=== PATIENT | female | born 1940 ===

== ENCOUNTER 2022-11-18 20:19 | Inpatient (IN) | payer MEDICARE, OTHER ==
[~2022-11-18] VITALS: Ht 157.5 cm; Wt 59.7 kg
[2022-11-18 21:41] LABS: GLUCOMETER DEV NAME(LOC) ER.6; GLUCOSE,POINT OF CARE 157 MG/DL (70-110)
[2022-11-18 22:43] LABS: BASOPHILS % (AUTO) 0.4 % (0.0-2.0); EOSINOPHILS % (AUTO) 2.9 % (1.0-6.0); HEMATOCRIT 36.2 % (36-46); HEMOGLOBIN 11.8 g/dL (12.0-16.0); LYMPHOCYTES # (AUTO) 2.6 K/uL (1.0-4.8); LYMPHOCYTES % (AUTO) 39.9 % (22.0-44.0); MEAN CORPUSCULAR HGB CONC 32.7 G/dL (31.0-37.0); MEAN CORPUSCULAR VOLUME 95 fL (80-100); MONOCYTES # (AUTO) 0.7 K/uL (0.1-1.0); MONOCYTES % (AUTO) 11.2 % (2.0-9.0); NEUTROPHILS % (AUTO) 45.6 % (40.0-70.0); PLATELET COUNT (AUTO) 205 K/uL (150-450); RED BLOOD CELL COUNT(AUTO) 3.81 MIL/uL (4.00-5.20); RED CELL DISTRIBUTION WIDTH 12.8 % (11.5-14.5)
[2022-11-18 22:53] LABS: CALCIUM, TOTAL 9.4 mg/dL (8.8-10.5); CREATININE 1.09 mg/dL (0.60-1.30); POTASSIUM 3.9 mmol/L (3.5-5.1)
[2022-11-18 22:56] LABS: PROTHROMBIN TIME 10.1 SEC (9.4-11.6)
[2022-11-18 23:06] LABS: ALBUMIN 3.9 g/dL (3.4-5.0); BILIRUBIN,TOTAL 0.4 mg/dL (0.1-1.0)
[2022-11-18 23:06] LABS: APPEARANCE,URINE HAZY (CLEAR); BILIRUBIN,URINE NEGATIVE (NEGATIVE); GLUCOSE, URINE (UA) 70-100 mg/dL (NEGATIVE); KETONES,URINE NEGATIVE (NEGATIVE); LEUKOCYTE ESTERASE ,URINE NEGATIVE (NEGATIVE); NITRATE,URINE POSITIVE (NEGATIVE); OCCULT BLOOD,URINE NEGATIVE (NEGATIVE); PROTEIN,URINE NEGATIVE (NEGATIVE); UROBILINOGEN,URINE <=1.0 mg/dL (<=1.0)
[2022-11-18 23:19] LABS: RBC,URINE None Seen /HPF (0-2)
[2022-11-18 23:20] LABS: BACTERIA,URINE Moderate /HPF (None Seen); SQUAMOUS EPITHELIAL CELL,UR None Seen /LPF (None Seen); WBC,URINE 0-2 /HPF (0-5)
[2022-11-19] MEDS ORDERED: CefTRIAXone 1 GM/DEXTROSE 50 ML IV ONE
[2022-11-19] MEDS ORDERED: 0.9% SODIUM CHLORIDE 10 ML SYRINGE IVP PRN (01:30)
[2022-11-19] MEDS ORDERED: ONDANSETRON HCL 4 MG/2 ML VIAL IVP PRN (01:30)
[2022-11-19] MEDS ORDERED: SENN-376 PO (01:39)
[2022-11-19] MEDS ORDERED: SIMV-259 PO (01:39)
[2022-11-19] MEDS ORDERED: BENZ1LOZ77 PO (01:39)
[2022-11-19] MEDS ORDERED: DIPY75TA PO (01:39)
[2022-11-19] MEDS ORDERED: NAPR-1197 PO (01:39)
[2022-11-19] MEDS ORDERED: FOSI20TA98 PO (01:39)
[2022-11-19] MEDS ORDERED: MELA5TAB40 PO (01:39)
[2022-11-19] MEDS ORDERED: ALEN70TA65 PO (01:39)
[2022-11-19] MEDS ORDERED: DOCU-385 PO (01:39)
[2022-11-19] MEDS ORDERED: CARV3 PO (01:39)
[2022-11-19] MEDS ORDERED: CLOP75TA60 PO (01:39)
[2022-11-19] MEDS ORDERED: CA/D1TAB7 PO (01:39)
[2022-11-19] MEDS ORDERED: NIFE-46 PO (01:39)
[2022-11-19] MEDS ORDERED: DICL100G51 TP (01:39)
[2022-11-19] MEDS ORDERED: AMIT25TA10 PO (01:39)
[2022-11-19] MEDS ORDERED: TRAM-559 PO (01:39)
[2022-11-19] MEDS ORDERED: DEXT15DR29 OU (01:39)
[2022-11-19 13:46] LABS: GLUCOMETER DEV NAME(LOC) ER.6; GLUCOSE,POINT OF CARE 171 MG/DL (70-110)
[2022-11-19 15:18] VITALS: BP 155/91
[2022-11-19] MEDS ORDERED: SENNOSIDES 8.6 MG TABLET PO PRN (17:00)
[2022-11-19] MEDS ORDERED: TraMADol HCL 50 MG TABLET PO PRN (17:00)
[2022-11-19] MEDS: CLOPIDOGREL BISULFATE 75 MG TABLET PO SCH (18:42)
[2022-11-19 20:00] VITALS: BP 148/87
[2022-11-19] MEDS ORDERED: NAPROXEN 250 MG TABLET PO SCH (21:00)
[2022-11-19] MEDS ORDERED: [UNRECOGNIZED DRUG - OTHER] PO SCH (21:00)
[2022-11-19] MEDS: MELATONIN 5 MG TABLET PO SCH (21:00)
[2022-11-19] MEDS: DOCUSATE SODIUM 100 MG CAPSULE PO SCH (21:11)
[2022-11-19] MEDS: SIMVASTATIN 10 MG TABLET PO SCH (21:11)
[2022-11-19] MEDS: DIPYRIDAMOLE 75 MG TABLET PO SCH (21:12)
[2022-11-19] MEDS: DEXTRAN 70 0.1%/HYPROMELL 0.3% 0.9 ML OPHTHALMIC SOLUTION [PF] OU SCH (21:12)
[2022-11-19] MEDS: AMITRIPTYLINE HCL 25 MG TABLET PO SCH (21:12)
[2022-11-19] MEDS: DICLOFENAC SODIUM 1% 100 GM GEL [2GM] TP SCH (21:12)
[2022-11-19] MEDS: CARVEDILOL 3.125 MG TABLET PO SCH (21:20)
[2022-11-20] VITALS (8 sets, daily range): BP systolic 98–167; BP diastolic 56–91
[2022-11-20] MEDS ORDERED: SODIUM CHLORIDE 0.9% 500 ML IV ONE (00:57)
[2022-11-20] MEDS: CefTRIAXone 1 GM/DEXTROSE 50 ML IV SCH (01:12)
[2022-11-20] MEDS ORDERED: ALENDRONATE SODIUM 70 MG TABLET PO SCH (06:30)
[2022-11-20 06:40] LABS: BASOPHILS % (AUTO) 0.6 % (0.0-2.0); EOSINOPHILS % (AUTO) 3.3 % (1.0-6.0); HEMATOCRIT 35.1 % (36-46); HEMOGLOBIN 11.7 g/dL (12.0-16.0); LYMPHOCYTES # (AUTO) 3.2 K/uL (1.0-4.8); LYMPHOCYTES % (AUTO) 43.4 % (22.0-44.0); MEAN CORPUSCULAR HEMOGLOBIN 31.8 pg (26.0-34.0); MEAN CORPUSCULAR HGB CONC 33.4 G/dL (31.0-37.0); MEAN CORPUSCULAR VOLUME 95 fL (80-100); MONOCYTES # (AUTO) 0.9 K/uL (0.1-1.0); MONOCYTES % (AUTO) 11.9 % (2.0-9.0); NEUTROPHILS % (AUTO) 40.8 % (40.0-70.0); PLATELET COUNT (AUTO) 201 K/uL (150-450); RED BLOOD CELL COUNT(AUTO) 3.69 MIL/uL (4.00-5.20); RED CELL DISTRIBUTION WIDTH 13.1 % (11.5-14.5)
[2022-11-20 07:01] LABS: ALBUMIN 3.3 g/dL (3.4-5.0); BILIRUBIN,TOTAL 0.3 mg/dL (0.1-1.0); CALCIUM, TOTAL 8.2 mg/dL (8.8-10.5); CREATININE 1.11 mg/dL (0.60-1.30); POTASSIUM 3.7 mmol/L (3.5-5.1)
[2022-11-20] MEDS: CLOPIDOGREL BISULFATE 75 MG TABLET PO SCH (08:51)
[2022-11-20] MEDS: DOCUSATE SODIUM 100 MG CAPSULE PO SCH ×2 (08:51→21:00)
[2022-11-20] MEDS: CARVEDILOL 3.125 MG TABLET PO SCH ×2 (08:51→21:00)
[2022-11-20] MEDS: DEXTRAN 70 0.1%/HYPROMELL 0.3% 0.9 ML OPHTHALMIC SOLUTION [PF] OU SCH ×4 (08:52→21:01)
[2022-11-20] MEDS: NIFEdipine 60 MG ER TABLET PO SCH (08:52)
[2022-11-20] MEDS: NAPROXEN 250 MG TABLET PO SCH ×2 (08:53→18:06)
[2022-11-20] MEDS: DIPYRIDAMOLE 75 MG TABLET PO SCH ×4 (08:53→21:00)
[2022-11-20] MEDS: DICLOFENAC SODIUM 1% 100 GM GEL [2GM] TP SCH ×4 (08:55→21:01)
[2022-11-20] MEDS ORDERED: CALCIUM OYSTER SHELL 250 MG-VIT D3 125 UNITS[3.125MCG] TABLET PO SCH (09:00)
[2022-11-20] MEDS: CALCIUM OYSTER SHELL 250 MG-VIT D3 125 UNITS[3.125MCG] TABLET PO SCH (13:31)
[2022-11-20] MEDS: SIMVASTATIN 10 MG TABLET PO SCH (21:00)
[2022-11-20] MEDS: AMITRIPTYLINE HCL 25 MG TABLET PO SCH (21:00)
[2022-11-20] MEDS: MELATONIN 5 MG TABLET PO SCH (21:01)
[2022-11-21 00:25] VITALS: BP 119/65
[2022-11-21] MEDS: CefTRIAXone 1 GM/DEXTROSE 50 ML IV SCH (01:12)
[2022-11-21 05:20] VITALS: BP 101/41
[2022-11-21 07:20] VITALS: BP 111/50
[2022-11-21] MEDS: CLOPIDOGREL BISULFATE 75 MG TABLET PO SCH (08:36)
[2022-11-21] MEDS: DOCUSATE SODIUM 100 MG CAPSULE PO SCH (08:36)
[2022-11-21] MEDS: NIFEdipine 60 MG ER TABLET PO SCH (08:36)
[2022-11-21] MEDS: CARVEDILOL 3.125 MG TABLET PO SCH (08:36)
[2022-11-21] MEDS: NAPROXEN 250 MG TABLET PO SCH (08:36)
[2022-11-21] MEDS: DIPYRIDAMOLE 75 MG TABLET PO SCH ×2 (08:37→12:43)
[2022-11-21] MEDS: CALCIUM OYSTER SHELL 250 MG-VIT D3 125 UNITS[3.125MCG] TABLET PO SCH (08:37)
[2022-11-21] MEDS: DEXTRAN 70 0.1%/HYPROMELL 0.3% 0.9 ML OPHTHALMIC SOLUTION [PF] OU SCH ×2 (08:38→12:43)
[2022-11-21 11:11] VITALS: BP 122/76
[2022-11-21] MEDS: DICLOFENAC SODIUM 1% 100 GM GEL [2GM] TP SCH (12:43)
[2022-11-21] MEDS ORDERED: CEPH-558 PO (13:27)
[2022-11-21 15:28] VITALS: BP 118/65
== END 2022-11-21 17:30 | disposition home or self-care (01) | DRG 690 ==
LOC: EMS 22:19 → ICUN 11-19 04:00 → 5S 11-19 09:41
PROVIDERS: ADMIT Hospitalist; ATTEND Hospitalist
DX: N39.0 Urinary tract infection, site not specified (principal); I69.351 Hemiplegia and hemiparesis following cerebral infarction affecting right dominant side; I69.354 Hemiplegia and hemiparesis following cerebral infarction affecting left non-dominant side; F41.9 Anxiety disorder, unspecified; I10 Essential (primary) hypertension; M81.0 Age-related osteoporosis without current pathological fracture; E11.9 Type 2 diabetes mellitus without complications; Z88.6 Allergy status to analgesic agent; Z88.0 Allergy status to penicillin
CPT/HCPCS: 51701; 70450; 71045; 72125; 80053; 81001; 82550; 82962; 83880; 84484; 85025; 85610; 85730; 87081; 87086; 87186; 92523; 92610; 93005; 93306; 93880; 93970; 99285; G0378; J0696; J7040; Q9967; 36415-L1; 36415-TC